=== PATIENT | female | born 1960 | race Caucasian/White ===

== ENCOUNTER 2017-05-14 15:57 | Inpatient (IN) | payer SELFPAY ==
[~2017-05-14] VITALS: Ht 167.6 cm; Wt 68.4 kg
[~2017-05-14 15:57] MED LIST: AMBIEN 5MG TABLE5 MG PO; ATORVASTATIN; BCP TD; CETIRIZINE; HCTZ; KARIVA1 TAB PO; LORTAB 5/500 501 TAB PO; MULTIPLE VITAMI1 CAP; PREMARIN 0.60.625 M1 PO; PRINZIDE 12.5 M1 TAB PO; UNABLE
[2017-05-14 16:49] LABS: BASO % 0.5 % (0.0-2.0); EOS % 0.5 % (0-4.0); GRAN # 4.9 (1.4-6.5); GRAN % 56.9 % (42.2-75.2); LYMPH % 34.9 % (20.0-51.0); MEAN CELL VOLUME 87 fl (80.0-100.0); MEAN CORPUSCULAR HGB CONC 33 g/dl (33.0-37.0); MEAN PLATELET VOLUME 10.2 fl (7.4-10.4); MONO # 0.6 (0.1-0.6); PLATELET COUNT 474 K/mm3 (130-400); RED BLOOD COUNT 3.83 M/mm3 (4.10-5.30); REDCELL DISTRIBUTION WIDTH-CV 16.6 % (11.5-14.5); WHITE BLOOD COUNT 8.6 K/mm3 (4.8-10.8)
[2017-05-14 16:50] LABS: HEMATOCRIT 33.4 % (37.0-47.0); HEMOGLOBIN 10.9 g/dl (12.5-16.0); MEAN CORPUSCULAR HEMOGLOBIN 28 pg (27.0-31.0)
[2017-05-14 17:54] LABS: ADJUSTED CALCIUM 9.4 mg/dL (8.4-10.2); ALBUMIN 3.6 gm/dL (3.5-5.0); BILIRUBIN,TOTAL 0.2 mg/dL (0.0-1.0); CALCIUM 9.1 mg/dL (8.4-10.2); CREATININE, serum 0.7 mg/dL (0.52-1.25); POTASSIUM 4.5 mmol/L (3.4-5.0); TOTAL PROTEIN 6.5 gm/dL (6.4-8.2)
[2017-05-14] MEDS ORDERED: ZOCOR5 MG PO (23:51)
[2017-05-15] VITALS (19 sets, daily range): BP systolic 98–132; BP diastolic 62–81; PULSE 70–85; TEMP 97.8–99
[2017-05-15 03:08] LABS: BASO % 0.2 % (0.0-2.0); EOS % 0.3 % (0-4.0); GRAN # 6.3 (1.4-6.5); GRAN % 69.6 % (42.2-75.2); LYMPH # 2.1 (1.2-3.4); LYMPH % 23.5 % (20.0-51.0); MEAN CELL VOLUME 87 fl (80.0-100.0); MEAN CORPUSCULAR HGB CONC 33 g/dl (33.0-37.0); MONO # 0.6 (0.1-0.6); MONO % 6.1 % (1.7-9.3); PLATELET COUNT 404 K/mm3 (130-400); RED BLOOD COUNT 3.57 M/mm3 (4.10-5.30); REDCELL DISTRIBUTION WIDTH-CV 16.3 % (11.5-14.5)
[2017-05-15 03:15] LABS: PROTHROMBIN TIME 10.8 SECONDS (9.7-12.8)
[2017-05-15 03:16] LABS: HEMATOCRIT 31.2 % (37.0-47.0); HEMOGLOBIN 10.3 g/dl (12.5-16.0); MEAN CORPUSCULAR HEMOGLOBIN 29 pg (27.0-31.0)
[2017-05-15 03:21] LABS: ADJUSTED CALCIUM 9.4 mg/dL (8.4-10.2); ALBUMIN 3.4 gm/dL (3.5-5.0); BILIRUBIN,TOTAL 0.4 mg/dL (0.0-1.0); CALCIUM 8.9 mg/dL (8.4-10.2); CREATININE, serum 0.65 mg/dL (0.52-1.25); MAGNESIUM 1.6 mg/dL (1.6-2.3); POTASSIUM 3.6 mmol/L (3.4-5.0); TOTAL PROTEIN 6.2 gm/dL (6.4-8.2)
[2017-05-15 03:34] LABS: TROPONIN-I 1.2 ng/mL (0.000-0.034)
[2017-05-15] MEDS ORDERED: DOXYCYCLINE HY100 MG PO (08:49)
[2017-05-15] MEDS ORDERED: PREDNISONE10 MG PO (08:50)
[2017-05-15 09:42] LABS: PH 6 (5-8); URINE APPEARANCE Clear; URINE BACTERIA Rare /hpf; URINE BILIRUBIN Negative (NEGATIVE); URINE BLOOD Negative (NEGATIVE); URINE COLOR Yellow; URINE GLUCOSE Negative (NEGATIVE); URINE KETONE Negative (NEGATIVE); URINE RBC 0-2 /hpf; URINE UROBILINOGEN Negative (NEGATIVE)
[2017-05-15 10:41] LABS: RETIC % 1.4 % (0.5-3.52)
[2017-05-15 10:53] LABS: TOTAL IRON BINDING CAPACITY 421 ug/dL (265-497)
[2017-05-15 11:20] LABS: FERRITIN 7 ng/mL (11-264)
[2017-05-16 04:00] VITALS: BP 110/70; PULSE 69; TEMP 98
[2017-05-16 05:51] LABS: BASO % 0.4 % (0.0-2.0); EOS # 0.1 (0.0-0.7); EOS % 0.6 % (0-4.0); GRAN # 6.2 (1.4-6.5); GRAN % 68.9 % (42.2-75.2); LYMPH % 22.5 % (20.0-51.0); MEAN CELL VOLUME 88 fl (80.0-100.0); MEAN CORPUSCULAR HGB CONC 32 g/dl (33.0-37.0); MEAN PLATELET VOLUME 10.1 fl (7.4-10.4); MONO # 0.7 (0.1-0.6); MONO % 7.4 % (1.7-9.3); PLATELET COUNT 370 K/mm3 (130-400); RED BLOOD COUNT 3.47 M/mm3 (4.10-5.30); REDCELL DISTRIBUTION WIDTH-CV 16.9 % (11.5-14.5)
[2017-05-16 06:03] LABS: CALCIUM 8.7 mg/dL (8.4-10.2); CREATININE, serum 0.68 mg/dL (0.52-1.25); POTASSIUM 4.3 mmol/L (3.4-5.0)
[2017-05-16 06:07] LABS: HEMATOCRIT 30.6 % (37.0-47.0); HEMOGLOBIN 9.9 g/dl (12.5-16.0); MEAN CORPUSCULAR HEMOGLOBIN 29 pg (27.0-31.0)
[2017-05-16 08:00] VITALS: BP 126/88; PULSE 70; TEMP 98.7
[2017-05-16 12:00] VITALS: BP 118/60; PULSE 69; PULSE 75; TEMP 98.9
[2017-05-16] MEDS ORDERED: BRILINTA90 MG PO (14:44)
[2017-05-16] MEDS ORDERED: LIPITOR 80MG80 MG PO (14:44)
[2017-05-16] MEDS ORDERED: TOPROL XL 25MG25 MG PO (14:45)
[2017-05-16] MEDS ORDERED: ASPIRIN 81M81 MG/TA2 PO (14:47)
== END 2017-05-16 16:00 | disposition home or self-care (01) | DRG 247 ==
LOC: COL.ER 15:57 → SURG 22:09 → EU 05-15 09:20 → ICU 05-15 14:32
PROVIDERS: Emergency Medicine; Internal Medicine Cardiovascular Disease; Nurse Practitioner; Nurse Practitioner Family; Physician Assistant
PROC: 027034Z Dilation of Coronary Artery, One Artery with Drug-eluting Intraluminal Device, Percutaneous Approach (ICD-10-PCS; principal; 2017-05-15)
PROC: B2111ZZ Fluoroscopy of Multiple Coronary Arteries using Low Osmolar Contrast (ICD-10-PCS; 2017-05-15)
DX: I21.4 Non-ST elevation (NSTEMI) myocardial infarction (principal); I10 Essential (primary) hypertension; Z86.718 Personal history of other venous thrombosis and embolism; D64.9 Anemia, unspecified; I25.10 Atherosclerotic heart disease of native coronary artery without angina pectoris
CPT/HCPCS: 99223-AI; 99239; C1760; C1769; C1874; C1887; C1894; C9600; J0583; J1650; J2250; J2270; J2405; J3010; J7030; Q9967

== ENCOUNTER → 2018-12-17 | Outpatient (CLI) | payer BC ==
[~2018-12-17] MED LIST changes: +ASPIRIN 81M81 MG/TA2 PO; +BRILINTA90 MG PO; +DOXYCYCLINE HY100 MG PO; +LIPITOR 80MG80 MG PO; +PREDNISONE10 MG PO; +TOPROL XL 25MG25 MG PO; +ZOCOR5 MG PO
== END ==
LOC: MC.RAD 08:30
DX: Z12.31 Encounter for screening mammogram for malignant neoplasm of breast (principal)

== ENCOUNTER 2019-04-10 20:50 | Emergency (ER) | payer BC ==
[~2019-04-10] VITALS: Ht 167.6 cm; Wt 65.9 kg
[2019-04-10 21:03] VITALS: TEMP 98.3
[2019-04-10 22:34] LABS: COLLECTION METHOD CLEAN CATCH
[2019-04-10 22:37] LABS: BASO # 0.1 (0.0-0.2); BASO % 0.9 % (0.0-2.0); EOS # 0.1 (0.0-0.7); EOS % 1.3 % (0-4.0); GRAN # 3.3 (1.4-6.5); GRAN % 58.4 % (42.2-75.2); HEMATOCRIT 38.8 % (37.0-47.0); HEMOGLOBIN 13.2 g/dl (12.5-16.0); LYMPH # 1.7 (1.2-3.4); LYMPH % 30.8 % (20.0-51.0); MEAN CELL VOLUME 92 fl (80.0-100.0); MEAN CORPUSCULAR HEMOGLOBIN 31 pg (27.0-31.0); MEAN CORPUSCULAR HGB CONC 34 g/dl (33.0-37.0); MEAN PLATELET VOLUME 9.3 fl (7.4-10.4); MONO # 0.5 (0.1-0.6); MONO % 8.4 % (1.7-9.3); PLATELET COUNT 343 K/mm3 (130-400); RED BLOOD COUNT 4.21 M/mm3 (4.10-5.30); REDCELL DISTRIBUTION WIDTH-CV 13.5 % (11.5-14.5)
[2019-04-10 22:41] LABS: MUCOUS Present /lpf; PH 7 (5-8); SQUAMOUS EPITHELIAL None Seen /hpf; URINE APPEARANCE Clear; URINE BACTERIA None Seen /hpf; URINE BILIRUBIN Negative (NEGATIVE); URINE BLOOD Negative (NEGATIVE); URINE COLOR Yellow; URINE GLUCOSE Negative (NEGATIVE); URINE KETONE Negative (NEGATIVE); URINE LEUKOCYTE ESTERASE Trace (NEGATIVE); URINE NITRATE Negative (NEGATIVE); URINE PROTEIN(semi-quant) Negative (NEGATIVE); URINE RBC 0-2 /hpf; URINE UROBILINOGEN Negative (NEGATIVE)
[2019-04-10 22:56] LABS: ALBUMIN 4.8 gm/dL (3.5-5.0); BILIRUBIN,TOTAL 0.4 mg/dL (0.0-1.0); C-REACTIVE PROTEIN 0.6 mg/dL (0.0-0.9); CALCIUM 9.9 mg/dL (8.4-10.2); CREATININE, serum 0.54 (0.52-1.25); POTASSIUM 3.8 mmol/L (3.4-5.0); TOTAL PROTEIN 8.1 gm/dL (6.4-8.2)
[2019-04-10] MEDS ORDERED: NORCO 325 MG-51 TAB PO (23:31)
[2019-04-10 23:43] VITALS: BP 142/88; PULSE 71
== END 2019-04-10 23:44 | disposition home or self-care (01) ==
LOC: COL.ER 20:50
PROVIDERS: Physician Assistant
DX: N81.89 Other female genital prolapse (principal); Z86.718 Personal history of other venous thrombosis and embolism; Z79.82 Long term (current) use of aspirin

== ENCOUNTER 2019-04-21 16:39 | Inpatient (IN) | payer BC ==
[~2019-04-21] VITALS: Ht 167.6 cm; Wt 73.6 kg
[~2019-04-21 16:39] MED LIST changes: +NORCO 325 MG-51 TAB PO
[2019-04-21] MEDS ORDERED: ESTRACE 1MG1 MG/TAB PO (17:01)
[2019-04-21 18:45] LABS: CREATININE, serum 0.63 (0.52-1.25); TOTAL PROTEIN 7.3 gm/dL (6.4-8.2)
[2019-04-21 21:07] LABS: BASO % 0.2 % (0.0-2.0); EOS # 0.1 (0.0-0.7); GRAN # 9.6 (1.4-6.5); GRAN % 76.8 % (42.2-75.2); HEMATOCRIT 38.4 % (37.0-47.0); HEMOGLOBIN 12.5 g/dl (12.5-16.0); LYMPH # 1.6 (1.2-3.4); LYMPH % 12.5 % (20.0-51.0); MEAN CELL VOLUME 94 fl (80.0-100.0); MEAN CORPUSCULAR HEMOGLOBIN 31 pg (27.0-31.0); MEAN CORPUSCULAR HGB CONC 33 g/dl (33.0-37.0); MEAN PLATELET VOLUME 10.5 fl (7.4-10.4); MONO # 1.2 (0.1-0.6); MONO % 9.3 % (1.7-9.3); PLATELET COUNT 433 K/mm3 (130-400); RED BLOOD COUNT 4.09 M/mm3 (4.10-5.30); REDCELL DISTRIBUTION WIDTH-CV 14.8 % (11.5-14.5)
[2019-04-21] MEDS ORDERED: DESYREL 50MG50 MG PO (22:39)
[2019-04-22 00:34] VITALS: BP 124/71; PULSE 93; TEMP 97.9
[2019-04-22 00:47] VITALS: BP 124/71; PULSE 93; TEMP 97.9
--- NOTE | 2019-04-22 02:30 | NUR ---
Fleet mineral oil enema given at this time. Tiny amount of sediment looking stool produces. Bowel sounds are active in all quads.
--- NOTE | 2019-04-22 05:00 | NUR ---
Has rested off and on this shift. Voiding without difficulty. No significant bowel movement. Dilaudid per dr order managing pain. Denies nausea. Daughter at bedside. Call light in reach, bed in low position with wheels locked. Will monitor.
[2019-04-22 05:45] VITALS: BP 124/66; BP 132/70; PULSE 59; PULSE 92; TEMP 98.3; TEMP 98.5
--- NOTE | 2019-04-22 06:56 | NUR ---
Report given to LEONARD Schroeder
[2019-04-22 07:48] VITALS: BP 126/71; PULSE 77; TEMP 98.8
--- NOTE | 2019-04-22 11:00 | NUR ---
Patient has been up a few times to the bathroom but has only passed a few small hard pieces of stool. She denies blood in her stools. She does have some bleeding still from her hysterectomy. Patient stated her nausea is better but she continues to have pain when she gets up. She is supposed to taking in the go lytely but she does not want to drink it because she stated she has had problems in the past with it. She it causes her to have cramps. Encouraged patient several times to walk in the hallways but she is wanting to wait until after lunch because she did not sleep all night and wants to nap. No other changes at this time. Call light within reach.
--- NOTE | 2019-04-22 11:37 | NUR ---
SW met with patient and daughter discuss discharge planning. Patient lives independently at home alone but has family support locally. Patient's PCP is Dr Grijalva and [facility] Patient denies difficulty obtaining/paying for medications. Patient reports independence with all ADLs and does not use any DME or home health services. Patient does not have any advanced directive and is not interested in completing any at this time. Patient plans to return home when discharged. PATRICIA does not anticipate any discharge needs.
[2019-04-22 16:00] VITALS: BP 120/65; PULSE 85; TEMP 98.4
--- NOTE | 2019-04-22 19:15 | NUR ---
Patient has got down about [address] Carr was here and tried to remove the impaction but was not able to reach the stool. Patient continues to have cramps from the treatment. Explained that if she does not start drinking the golytely that Dr Carr ordered to place a NG tube to get the medication in. Patient as about the NG tube and explained that it would stay in her nose until she got the golytely in or started to pass stool. Patient has started to drink more of the golytely. She walked twice today. Explained that Dr Miller wanted her walking a lot more than that. Denies nausea at this time. No other changes at this time. Call light within reach.
[2019-04-22 20:55] VITALS: BP 136/68; PULSE 77; TEMP 98.4
[2019-04-23] VITALS (7 sets, daily range): BP systolic 123–146; BP diastolic 71–80; PULSE 78–90; TEMP 97.8–99
--- NOTE | 2019-04-23 01:18 | NUR ---
PATIENT ALERT AND ORIENTED. REQUEST PAIN MEDICATION AT SHIFT CHANGE. TORADOL WAS GIVEN IV PUSH. PATIENT AMBULATED TO BATHROOM SEVERAL TIMES TONIGHT. HAS HAD SEVERAL VOIDS. MINERAL OIL ENEMA WAS GIVEN, HELD FOR ABOUT 5 MINUTES. PATIENT STATED SHE DIDN'T HAVE A STOOL. PATIENT HAS BEEN DRINKING GOLYTELY WITH ICE THIS EVENING AND HAS HAD SEVERAL CUPS. WILL CONTINUE TO ENCOURAGE. NOTED SMALL HEMMORHOID TO ANUS. NO FURTHER NEEDS AT THIS TIME. WILL CONTINUE TO MONITOR.
[2019-04-23 09:24] LABS: ALBUMIN 3.5 gm/dL (3.5-5.0); BILIRUBIN,TOTAL 0.7 mg/dL (0.0-1.0); CALCIUM 8.6 mg/dL (8.4-10.2); CREATININE, serum 0.49 (0.52-1.25); POTASSIUM 3.6 mmol/L (3.4-5.0); TOTAL PROTEIN 6.4 gm/dL (6.4-8.2)
--- NOTE | 2019-04-23 11:30 | NUR ---
Patient has been working on getting down her golytely. Dr Carr ordered a tap water enema but she is really wanting to wait until later in the day. She stated her rectum is very sore and sensitive and she does not think she can handle having an enema this am. Explained she really needs to drink the golytely today and get it down. She has been up walking in the hallways. No other changes at this time. Call light within reach.
--- NOTE | 2019-04-23 18:49 | NUR ---
Patient has been doing well this afternoon. She seems to be feeling better. She stated she is passing small hard pieces of stool but not very much. She has been getting more of her golytely down. She walked about 6 times in the hallway today. No other changes at this time. Call light within reach.
[2019-04-23 21:16] LABS: COLLECTION METHOD CLEAN CATCH
[2019-04-23 21:23] LABS: PH 9 (5-8); SQUAMOUS EPITHELIAL None Seen /hpf; URINE APPEARANCE Clear; URINE BACTERIA None Seen /hpf; URINE BILIRUBIN Negative (NEGATIVE); URINE BLOOD 2+ (NEGATIVE); URINE COLOR Straw; URINE GLUCOSE Negative (NEGATIVE); URINE KETONE Negative (NEGATIVE); URINE LEUKOCYTE ESTERASE Negative (NEGATIVE); URINE NITRATE Negative (NEGATIVE); URINE PROTEIN(semi-quant) Negative (NEGATIVE); URINE RBC 0-2 /hpf; URINE UROBILINOGEN Negative (NEGATIVE)
--- NOTE | 2019-04-24 00:46 | NUR ---
PATIENT HAS AMBULATED IN THE HALLS ONCE THIS EVENING. TAP WATER ENEMA WAS ATTEMPTED, HOWEVER PATIENT HAD DIFFICULTY HOLDING IN THE WATER AND IT ALL DRAINED OUT ONTO BED. NO STOOL PASSED AFTERWARDS. STATES SHE HAS MINIMAL CONTROL OF THE LITTLE STOOL SHE DOES PASS. SAYS PAIN IS MORE TOLERABLE HOWEVER SHE IS VERY SORE AND IRRITATED ANUS. PATIENT DRINKING GOLYTELY WHEN SHE IS AWAKE.
[2019-04-24 04:00] VITALS: BP 137/77; PULSE 81; TEMP 98.3
[2019-04-24 08:00] VITALS: BP 142/81; PULSE 81; TEMP 97.9
[2019-04-24 11:30] VITALS: BP 129/85; PULSE 87; TEMP 98.4
[2019-04-24 15:39] VITALS: BP 140/74; PULSE 80; TEMP 99.3
--- NOTE | 2019-04-24 20:00 | NUR ---
Pt. sitting up in bed with family at bedside. Pt. is A&OX3, assessment complete. IV to lt. forearm patent, IV fluids infusing per orders. Pt. denies pain or other needs at this time.
[2019-04-24 21:00] VITALS: BP 141/82; PULSE 81; TEMP 100.2
[2019-04-25 00:57] VITALS: BP 130/66; PULSE 95; TEMP 98.6
[2019-04-25 04:01] VITALS: BP 150/85; PULSE 84; TEMP 98.8
--- NOTE | 2019-04-25 08:00 | NUR ---
Patient in bed resting. Alert and oriented x 3. Shift assessment complete. IV fluids infusing to left forarm per orders. Encouraged patient to ambulate at least once every hour. Denies further needs at this time.
[2019-04-25 08:27] VITALS: BP 133/80; PULSE 75; TEMP 97.8
[2019-04-25] MEDS ORDERED: ANUSOL HC CREAM30 GM TOP (11:16)
[2019-04-25] MEDS ORDERED: AMITIZA24 MCG PO (11:17)
--- NOTE | 2019-04-25 16:00 | NUR ---
Discharge instructions provided to patient. Educated patient on medication use and when to call physician. All questions answered. IV to left forarm discontinued, catheter tip intact. Denies further needs at this time. Patient ambulated out with surgical staff and daughter.
== END 2019-04-25 16:10 | disposition home or self-care (01) | DRG 392 ==
LOC: COL.ER 16:39 → SURG 21:37
PROVIDERS: Internal Medicine Gastroenterology; ADMIT Family Medicine
DX: K59.03 Drug induced constipation (principal); I10 Essential (primary) hypertension; E78.5 Hyperlipidemia, unspecified; T40.605A Adverse effect of unspecified narcotics, initial encounter; R74.0 Nonspecific elevation of levels of transaminase and lactic acid dehydrogenase [LDH]; N93.9 Abnormal uterine and vaginal bleeding, unspecified; Z90.710 Acquired absence of both cervix and uterus
CPT/HCPCS: OP; G0378; J1170; J1885; J2405; J2765; J3010; J7030; J7120; Q9967

== ENCOUNTER 2019-05-01 17:02 | Inpatient (IN) | payer BC ==
[~2019-05-01] VITALS: Ht 167.6 cm; Wt 66.7 kg
[~2019-05-01 17:02] MED LIST changes: +AMITIZA24 MCG PO; +ANUSOL HC CREAM30 GM TOP; +DESYREL 50MG50 MG PO; +ESTRACE 1MG1 MG/TAB PO
[2019-05-01 17:52] LABS: BASO % 0.4 % (0.0-2.0); EOS # 0.2 (0.0-0.7); EOS % 2.4 % (0-4.0); GRAN % 73.2 % (42.2-75.2); HEMOGLOBIN 11.3 g/dl (12.5-16.0); LYMPH # 1.5 (1.2-3.4); LYMPH % 15.3 % (20.0-51.0); MEAN CELL VOLUME 93 fl (80.0-100.0); MEAN CORPUSCULAR HEMOGLOBIN 31 pg (27.0-31.0); MEAN CORPUSCULAR HGB CONC 33 g/dl (33.0-37.0); MEAN PLATELET VOLUME 9.4 fl (7.4-10.4); MONO # 0.8 (0.1-0.6); MONO % 8.4 % (1.7-9.3); PLATELET COUNT 528 K/mm3 (130-400); RED BLOOD COUNT 3.65 M/mm3 (4.10-5.30); REDCELL DISTRIBUTION WIDTH-CV 14.6 % (11.5-14.5)
[2019-05-01 18:04] LABS: BILIRUBIN,TOTAL 0.5 mg/dL (0.0-1.0); C-REACTIVE PROTEIN 2.1 mg/dL (0.0-0.9); CALCIUM 9.2 mg/dL (8.4-10.2); CREATININE, serum 0.57 (0.52-1.25); TOTAL PROTEIN 7.1 gm/dL (6.4-8.2)
[2019-05-01 18:17] LABS: HEMATOCRIT 33.8 % (37.0-47.0)
[2019-05-01] MEDS ORDERED: ZOLOFT 50MG50 MG PO (19:45)
[2019-05-01] MEDS ORDERED: FLEXERIL 1010 MG/TAB PO (19:45)
[2019-05-01] MEDS ORDERED: CURCUMIN95% (19:46)
[2019-05-01] MEDS ORDERED: GAS-X ULTRA ST180 MG PO (19:47)
--- NOTE | 2019-05-01 21:58 | NUR ---
PT ADMITTED ROOM 341 PER W/C. ABD PAIN AND SEVERE CONSTIPATION. INT IN RT AC SPACE. DAUGHTER AT BEDSIDE. VERY SUPPORTIVE.
[2019-05-01 21:59] VITALS: BP 138/73; PULSE 75; TEMP 98.9
--- NOTE | 2019-05-01 22:49 | NUR ---
PT UP TO BR APPROX Q15MIN TO VOID. VOIDING APPROX 1 TSP CLEAR DILUTE YELLOW URINE. DENIES PASSING FLATUS. BLADDER SCANNED WITH 15CC RESIDUAL.
[2019-05-02] VITALS (7 sets, daily range): BP systolic 122–144; BP diastolic 58–77; PULSE 78–100; TEMP 97.9–99.2
[2019-05-02 00:52] LABS: COLLECTION METHOD CLEAN CATCH
[2019-05-02 01:00] LABS: MUCOUS Present /lpf; PH 5 (5-8); URINE APPEARANCE Clear; URINE BACTERIA Rare /hpf; URINE BILIRUBIN Negative (NEGATIVE); URINE BLOOD 2+ (NEGATIVE); URINE COLOR Yellow; URINE GLUCOSE Negative (NEGATIVE); URINE KETONE 2+ (NEGATIVE); URINE LEUKOCYTE ESTERASE 3+ (NEGATIVE); URINE NITRATE Negative (NEGATIVE); URINE PROTEIN(semi-quant) Negative (NEGATIVE); URINE RBC 20-50 /hpf; URINE UROBILINOGEN Negative (NEGATIVE)
[2019-05-02 03:20] LABS: COLLECTION METHOD CLEAN CATCH
[2019-05-02 03:29] LABS: MUCOUS Present /lpf; PH 5 (5-8); URINE APPEARANCE Clear; URINE BACTERIA Rare /hpf; URINE BILIRUBIN Negative (NEGATIVE); URINE BLOOD 2+ (NEGATIVE); URINE COLOR Yellow; URINE GLUCOSE Negative (NEGATIVE); URINE KETONE 1+ (NEGATIVE); URINE LEUKOCYTE ESTERASE 3+ (NEGATIVE); URINE NITRATE Negative (NEGATIVE); URINE PROTEIN(semi-quant) Negative (NEGATIVE); URINE UROBILINOGEN Negative (NEGATIVE)
--- NOTE | 2019-05-02 05:18 | NUR ---
PT C/O ABD CRAMPING "LABOR LIKE" GENERAL ABD PAINS. PT HAS CONTINUED TO GET UP VERY FREQUENTLY TO BR. VOIDS ONLY SMALL AMTS. HAD ANOTHER LOOSE SMEAR BROWN STOOL. IVFS CONTIUE AT 125CC/HR. POSITIONAL IN AC SPACE. PT VERY FATIGUED. WANTS TO REQUEST TORODOL FREQUECY TO CHANGE TO Q4HR. DR DELVALLE WILL BE IN THIS AM. PT CALMLY RESTING IN BED. DENIES NAUSEA.
--- NOTE | 2019-05-02 07:24 | NUR ---
PT REPORTS SHE HAS HER HOME LINESS MEDICATIONS WITH HER. REPORT GIVEN TO ELAINE VALLE. PT VOIDED 200CC (AT LEAST 5-6 VOIDINGS).
--- NOTE | 2019-05-02 08:00 | NUR ---
PATIENT IS RESTING IN BED. PATIENT IS A&OX4. VSS. BOWEL SOUNDS ACTIVE ALL FOUR QUADRANTS. ABDOMEN IS DISTENDED BUT SOFT TO PALPATION. PATIENT TOLERATING SMALL AMOUNTS OF CLEAR LIQUIDS. POSITIVE PEDAL PULSES EQUAL BILATERALLY. INT TO RIGHT AC. CALL LIGHT WITHIN REACH. PATIENT DENIES ANY NEEDS AT THIS TIME.
--- NOTE | 2019-05-02 11:57 | NUR ---
Plan: To return home with her daughter Noa [phone] as care support. patient wanted her daughter Noa, and her mother Cindy Brumfield [phone] listed as her emergency contacts. Patient declined a DPOA at this time. Assess: Nancy's met with the patient with her daughter Noa at bedside. Patient gave permission to discuss information in front of daughter. The patient does live alone, with no DME. Patient reports that her PCP is Dr. Grijalva, and she does not have any follow up appointments scheduled. Patient also reports that she gets her medications from [facility] with no concerns. Patient declined HHS at this time. Action: No additional concerns identified. Patient was educated on community resources and supports.
--- NOTE | 2019-05-02 12:50 | NUR ---
SOAP SUDS ENEMA PROVIDED PER DR. ESCOBAR. 3/4 OF THE BAG ADMINISTERED. PATIENT UNABLE TO HOLD ENEMA FOR MORE THAN A MINUTE. WILL CONTINUE TO MONITOR.
--- NOTE | 2019-05-02 14:45 | NUR ---
SECOND SOAP SUDS ENEMA PROVIDED PER DR. ESCOBAR. 3/4 OF ENEMA INSTILLED. MINIMAL RESULTS. FLECKS OF BROWN FECAL MATTER AND BROWN COLORED LIQUID PRESENT IN COMMODE.
--- NOTE | 2019-05-02 19:05 | NUR ---
REPORT GIVEN TO LEONARD DOMINIQUE.
--- NOTE | 2019-05-03 02:52 | NUR ---
At about 2100 patient requested pain medication. This was administered and this nurse noted that her commode was about half full of semi-liquid brown stool. Patient has rested well since pain medication was given. Denies any further needs. Will continue to monitor.
[2019-05-03 05:14] VITALS: BP 128/67; PULSE 85; TEMP 98.6
--- NOTE | 2019-05-03 06:30 | NUR ---
Patient requested PRN pain medication and this was administered. Patient states pain 6/10, but states she feels a lot better than yesterday since she was able to get some stool out. Will report off to day shift nurse.
[2019-05-03 07:04] LABS: HEMOGLOBIN 11.3 g/dl (12.5-16.0); MEAN CELL VOLUME 96 fl (80.0-100.0); MEAN CORPUSCULAR HEMOGLOBIN 31 pg (27.0-31.0); MEAN CORPUSCULAR HGB CONC 33 g/dl (33.0-37.0); MEAN PLATELET VOLUME 9.5 fl (7.4-10.4); PLATELET COUNT 509 K/mm3 (130-400); RED BLOOD COUNT 3.63 M/mm3 (4.10-5.30); REDCELL DISTRIBUTION WIDTH-CV 14.8 % (11.5-14.5)
[2019-05-03 07:11] LABS: HEMATOCRIT 34.7 % (37.0-47.0)
[2019-05-03 07:21] LABS: ALBUMIN 3.7 gm/dL (3.5-5.0); BILIRUBIN,TOTAL 0.7 mg/dL (0.0-1.0); C-REACTIVE PROTEIN 3.2 mg/dL (0.0-0.9); CALCIUM 8.4 mg/dL (8.4-10.2); CREATININE, serum 0.5 (0.52-1.25); MAGNESIUM 1.8 mg/dL (1.6-2.3); TOTAL PROTEIN 6.5 gm/dL (6.4-8.2)
[2019-05-03 07:24] LABS: POTASSIUM 2.7 mmol/L (3.4-5.0)
--- NOTE | 2019-05-03 07:29 | NUR ---
DR. BOWLING CALLED AND NOTIFIED OF THE PATIENTS CRITICAL POTASSIUM LEVEL OF 2.7. DR. BOWLING GAVE THIS NURSE THE OKAY TO START THE PATIENT ON THE POTASSIUM REPLACEMENT PROTOCOL. NO ADDITIONAL ORDERS GIVEN AT THIS TIME.
[2019-05-03 07:47] VITALS: BP 120/64; PULSE 71; TEMP 98.2
--- NOTE | 2019-05-03 08:00 | NUR ---
PATIENT IS DROWSY AND RESTING IN BED THIS MORNING. PATIENT AROUSES EASILY TO NAME. PATIENT IS A&OX4. VSS. BOWEL SOUNDS ACTIVE ALL FOUR QUADRANTS. MINIMAL ABDOMINAL DISTENTION NOTED. ABDOMEN IS SOFT TO PALPATION. POSITIVE PEDAL PULSES EQUAL BILATERALLY. K-PAD TO ABDOMEN. IV FLUIDS INFUSING TO LEFT AC IV VIA PUMP. CALL LIGHT WITHIN REACH. PATIENT DENIES ANY OTHER NEEDS AT THIS TIME.
[2019-05-03 09:53] LABS: BAND 2 % (0-10); EOSINOPHIL 2 % (0-4); LYMPHOCYTE 16 % (20.0-51.0); NEUTROPHILS 75 % (42.0-75.2); PLATELET ESTIMATE INCREASED (NORMAL)
--- NOTE | 2019-05-03 11:35 | NUR ---
PATIENT TAKEN TO RADIOLOGY FOR KUB VIA WHEELCHAIR BY SURGICAL STAFF. WILL WAIT FOR PATIENT ARRIVAL BACK TO ROOM 347.
[2019-05-03 13:32] VITALS: BP 139/79; PULSE 77; TEMP 98.6
--- NOTE | 2019-05-03 15:10 | NUR ---
DISCHARGE INSTRUCTIONS REVIEWED WITH PATIENT. ALL QUESTIONS ANSWERED. PATIENT'S LEFT WRIST INT DISCONTINUED PER PENDING DISCHARGE. TIP INTACT. PATIENT TOLERATED WELL. LINZESS RETURNED TO PATIENT. PATIENT WAITING FOR RIDE TO ARRIVE FOR DISCHARGE.
[2019-05-03 15:39] LABS: ALBUMIN 3.5 gm/dL (3.5-5.0); BILIRUBIN,TOTAL 0.3 mg/dL (0.0-1.0); CALCIUM 8.3 mg/dL (8.4-10.2); CREATININE, serum 0.56 (0.52-1.25); POTASSIUM 3.3 mmol/L (3.4-5.0); TOTAL PROTEIN 6.3 gm/dL (6.4-8.2)
--- NOTE | 2019-05-03 16:18 | NUR ---
PATIENT AMBULATED TO PERSONAL VEHICLE WITH SURGICAL STAFF. PATIENT DISCHARGED.
== END 2019-05-03 16:18 | disposition home or self-care (01) | DRG 921 ==
LOC: COL.ER 17:02 → SURG 19:36 → MEDICAL 23:11 → SURG 05-02 01:00
PROVIDERS: Emergency Medicine; Obstetrics & Gynecology; Surgery; ADMIT Obstetrics & Gynecology
DX: T81.89XA Other complications of procedures, not elsewhere classified, initial encounter (principal); K59.09 Other constipation; I25.2 Old myocardial infarction; E87.6 Hypokalemia; Y83.8 Other surgical procedures as the cause of abnormal reaction of the patient, or of later complication, without mention of misadventure at the time of the procedure; Z79.82 Long term (current) use of aspirin; Z90.710 Acquired absence of both cervix and uterus; Z95.5 Presence of coronary angioplasty implant and graft; Z86.718 Personal history of other venous thrombosis and embolism; Z88.2 Allergy status to sulfonamides; Z88.8 Allergy status to other drugs, medicaments and biological substances; K59.04 Chronic idiopathic constipation
CPT/HCPCS: J1885; J3480; J7030; Q9967

== ENCOUNTER → 2019-09-03 | Outpatient (CLI) | payer BC ==
[~2019-09-03] MED LIST changes: +CURCUMIN95%; +FLEXERIL 1010 MG/TAB PO; +GAS-X ULTRA ST180 MG PO; +ZOLOFT 50MG50 MG PO
== END ==
LOC: ZCOL.LAB 16:43
DX: L02.234 Carbuncle of groin (principal)

== ENCOUNTER → 2020-03-04 | Outpatient (CLI) | payer BC | LOC: ZCOL.LAB 15:44 | DX: L02.435 Carbuncle of right lower limb (principal) ==

== ENCOUNTER → 2020-05-09 | Outpatient (CLI) | payer BC | LOC: ZCOL.LAB 18:20 | DX: L02.435 Carbuncle of right lower limb (principal) ==

== ENCOUNTER → 2020-07-06 | Outpatient (CLI) | payer BC | LOC: ZCOL.LAB 10:46 | DX: Z20.828 Contact with and (suspected) exposure to other viral communicable diseases (principal) ==

== ENCOUNTER 2021-04-04 14:10 | Emergency (ER) | payer BC ==
[~2021-04-04] VITALS: Ht 167.6 cm; Wt 62.3 kg
[2021-04-04 17:00] VITALS: BP 124/64; PULSE 63; TEMP 98.2
== END 2021-04-04 17:00 | disposition home or self-care (01) ==
LOC: COL.ER 14:10
DX: R60.0 Localized edema (principal); I25.10 Atherosclerotic heart disease of native coronary artery without angina pectoris; I25.2 Old myocardial infarction; Z86.718 Personal history of other venous thrombosis and embolism; Z79.82 Long term (current) use of aspirin

== ENCOUNTER → 2021-04-05 | Outpatient (CLI) | payer BC | LOC: COL.VAS 08:09 | DX: I26.99 Other pulmonary embolism without acute cor pulmonale (principal); M79.89 Other specified soft tissue disorders ==

== ENCOUNTER 2024-02-19 09:24 | Emergency (ER) | payer BC ==
[~2024-02-19] VITALS: Ht 167.6 cm; Wt 65.9 kg
[2024-02-19 09:30] VITALS: TEMP 98.2
[2024-02-19 11:18] VITALS: BP 105/63; PULSE 63
== END 2024-02-19 11:21 | disposition home or self-care (01) ==
LOC: COL.ER 09:24
DX: R07.89 Other chest pain (principal); I25.2 Old myocardial infarction; Z91.040 Latex allergy status; Z95.5 Presence of coronary angioplasty implant and graft